=== PATIENT | male | born 1980 | race African-American/Black ===

== ENCOUNTER 2021-07-22 23:23 | Emergency (ER) | payer MEDICAID ==
[~2021-07-22] VITALS: Ht 193 cm; Wt 84.0 kg
[2021-07-23] MEDS ORDERED: SODIUM CHLORIDE 0.9% 1,000 ML IV ONE (02:30)
[2021-07-23 03:17] LABS: BASOPHILS % 0.9 % (0.0-2.0); HEMATOCRIT. 37.5 % (42.0-52.0); HEMOGLOBIN. 12.8 g/dL (14.0-18.0); LYMPHOCYTES % 33.4 % (20.0-50.0); MEAN CORPUSCULAR HEMOGLOBIN 30.8 pg (28.0-32.0); MEAN CORPUSCULAR VOLUME 90.2 fL (80.0-94.0); MEAN PLATELET VOLUME 8.7 fl (7.4-10.4); MONOCYTES % 12.6 % (2.0-8.0); NEUTROPHILS % 49.1 % (40.0-76.0); PLATELET 235 x1000/uL (130-400); RED BLOOD CELL COUNT 4.16 mill/uL (4.7-6.1); RED CELL DISTRIBUTION WIDTH 14.3 % (11.6-14.6)
[2021-07-23 03:38] LABS: CHLORIDE 109 mEq/L (98-107)
[2021-07-23 03:41] LABS: ETHANOL BLOOD 261 mg/dL
[2021-07-23 04:55] VITALS: BP 88/54
== END 2021-07-23 05:41 | disposition home or self-care (01) ==
LOC: ER 23:50
DX: F10.129 Alcohol abuse with intoxication, unspecified (principal); Y90.8 Blood alcohol level of 240 mg/100 ml or more
CPT/HCPCS: 36415; 80053; 80320; 82962; 85025; 99285; J7030; G0480

== ENCOUNTER 2021-08-02 21:05 | Emergency (ER) | payer MEDICAID ==
[~2021-08-02] VITALS: Ht 172.7 cm; Wt 73.0 kg
[2021-08-02 21:10] VITALS: BP 113/64
[2021-08-02] MEDS ORDERED: GABA-532 MT (21:57)
[2021-08-02] MEDS ORDERED: GABAPENTIN 300MG CAPSULE PO ONE (22:00)
== END 2021-08-02 22:15 | disposition home or self-care (01) ==
LOC: ER 21:05
DX: F10.129 Alcohol abuse with intoxication, unspecified (principal); Y90.0 Blood alcohol level of less than 20 mg/100 ml; Z91.14 Patient's other noncompliance with medication regimen
CPT/HCPCS: 93005; 99283